=== PATIENT | male | born 2005 | race Caucasian/White ===

== ENCOUNTER 2024-05-14 21:24 | Outpatient (REF) | payer BC, SELFPAY | END 2024-05-14 21:25 | disposition home or self-care (01) | LOC: LBN 21:24 | PROVIDERS: Visit Provider Physician Assistant Medical | DX: J02.9 Acute pharyngitis, unspecified (principal) | CPT/HCPCS: 87070 ==

== ENCOUNTER 2024-10-16 17:04 | Emergency (ER) | payer BC, SELFPAY ==
[2024-10-16 17:16] VITALS: BP 114/67; PULSE 105; RESP 18; TEMP 37.9; O2SAT 98
--- NOTE | 2024-10-16 18:24 | ED.GENADUL_ITS ---
Discharge Plan Disposition Patient Disposition: Home Condition: Good Discharge Details Clinical Impression: Fever Primary Care Provider: None,None ED Provider: Aditi Jeffrey Home Meds and New Rx's Prescriptions: No Action No Known Home Meds Discharge Instructions Instructions: Fever, Adult ED Additional Instructions: Continue taking tylenol and ibuprofen at home. Call your primary care doctor in the morning to schedule an appointment for within 72 hours to followup on your visit here. At that visit please also mention your magnesium which was slightly low here in the ED. Return to the emergency department for new or worsening symptoms including if your vomiting returns, you are unable to keep down fluids, headache, neck pain, rash, trouble breathing, or if you fever does not come down after medication. Stand Alone Forms: Work Release Discharge Data Discharge Date/Time-TO BE ENTERED AT DEPARTURE: 10/16/24 23:32 HPI General Mode of arrival: ambulatory . Date/Time Provider Initiated Documentation: 10/16/24 17:21 . Limitations to Documentation: no limitations . Information obtained by: patient . HPI Narrative: 19yo previously healthy male reports UTD on immunizations presenting for fever since yesterday. Tmax 102 F at home, improves with home tylenol or nyguil. Was nauseated yesterday and vomited once (nonbloody nonbilious); no further vomiting since then and nausea is now very mild and intermittent. No diarrhea, constipation, bloody stool, or abdominal pain. Drinking well, maybe slight decreased food intake. No cough, cold, rhinnorhea, chest pain, shortness of breath, dysuria, hematuria, rash, headache, neck pain, or myalgias. Does feel generally fatigued. No sick contacts. Related Data Home Medications ?Medication ?Instructions ?Recorded ?Confirmed Unknown [No Known Home Meds] 10/16/24 0 10/16/24 Allergies Allergy/AdvReac Type Severity Reaction Status Date / Time No Known Allergies Allergy Unverified 10/16/24 17:21 General Stated Complaint: Fever ROBERTO: 3 Review of Systems Narrative: see HPI Exam Narrative Exam Narrative: General: Alert, well appearing, well nourished, in no acute distress. Head: Normocephalic, atraumatic Neck: Trachea midline, ?Neck supple, no nuchal rigidity ENT: ?MMM.? No oropharygeal lesions or exudate. Cardiac: ?RRR, no murmurs appreciated Resp: No respiratory distress. CTAB. Abd: ?Soft, non-distended, nontender : ?No suprapubic tenderness. No CVA tenderness. Extremities: ?No deformities.? No peripheral edema. Neurologic: GCS 15. ? PERRL. Fluent speech, no dysarthria. Moves all extremities freely against gravity Course Vital Signs Vital signs: Vital Signs Temperature 37.9 C H 10/16/24 17:16 Pulse 105 H 10/16/24 17:16 Respiratory Rate 18 10/16/24 17:16 Blood Pressure 114/67 10/16/24 17:16 Pulse Oximetry 98 10/16/24 17:16 Temperature 37.9 C H 10/16/24 17:16 Temperature Source Oral 10/16/24 17:16 Pulse 105 H 10/16/24 17:16 Respiratory Rate 18 10/16/24 17:16 Blood Pressure 114/67 10/16/24 17:16 Pulse Oximetry 98 10/16/24 17:16 Pain Level 0 10/16/24 17:16 Medical Decision Making 19yo previously healthy male reports UTD on immunizations presenting for fever since yesterday. Tmax 102 F at home, nausated yesterday with single episode of emesis. No vomiting today and nausea improved. No other clear infectious symptoms. Temp of 37.9 on arrival, vital signs otherwise reassuring (initial pulse 105 after ambulating into triage, HR 80's on my exam). Well appearing on exam. Not overtly septic, will not treat empirically or send blood cultures. No clear foci of infection on exam or history. Abdomen is soft and entirely nontender reassuring against appendicitis, obstruction, colitis, other surgical intraabodminal pathology; would not get CT imaging. Will give ibuprofen here for symptoms while awaiting results of workup. History and exam not suggestive of meningitis, encephalitis; no indication for LP. -Labs reviewed as below, CBC with borderline leukopenia at 4.09 with normal diff, CMP with no actionable abnormalities (very slightly elevated AST/ALT), Mg borderline low at 1.7 (oral replacement ordered). UA not infected. -CXR independently reviewed, no focal pneumonia on my view, radiology read with no acute findings. -POC covid and flu negative -Tick and Lyme panel sent out On reassessment he reports feeling better after ibuprofen and would like discharge home. Remains well appearing. Repeat VS reassuring with normal HR and temperature. Unclear etiology of fever (early viral illness? tickbourne?) however with reassuring workup appropriate to go home. Strict return precautions were reviewed. Discharged home; discharge instructions and return precautions were reviewed with patient who verbalized understanding. All questions were answered and he is in full agremeent with the plan. Lab Data Lab results reviewed: Yes I reviewed the patient's lab results. Labs: Laboratory Tests Range/Units 10/16/24 10/16/24 18:14 20:30 WBC (4.4-10.8) 10^3/uL 4.09 L RBC (4.36-5.78) 10^6/uL 5.28 Hgb (13.5-17.5) g/dL 14.6 Hct (40.0-50.0) % 43.4 MCV (80-95) fL 82 MCH (27.0-33.0) pg 27.7 MCHC (32.0-36.0) % 33.6 RDW (11.8-14.1) % 13.2 Plt Count (130-400) 10^3/uL 134 MPV (8.0-11.0) fL 9.4 Immature Gran % % 0.0 Neutrophils % % 38.0 Lymphocytes % % 52.0 Atypical Lymphs % % 3 Monocytes % % 6.0 Eosinophils % % 0.0 Basophils % % 1.0 Nucleated RBC % (0.0-0.3) % 0.0 Absolute Neutrophils (1.2-6.7) 10^3/uL 1.55 Absolute Lymphocytes (1.2-3.4) 10^3/uL 2.25 Absolute Monocytes (0.1-0.8) 10^3/uL 0.25 Absolute Eosinophils (0.0-0.7) 10^3/uL 0.00 Absolute Basophils (0.0-0.2) 10^3/uL 0.04 RBC Morphology Normal Sodium (136-145) mmol/L 136 Potassium (3.5-5.1) mmol/L 4.0 Chloride (98-107) mmol/L 102 Carbon Dioxide (21.0-32.0) mmol/L 29.0 Anion Gap (3-11) mmol/L 5.0 BUN (7-18) mg/dL 14 Creatinine (0.70-1.30) mg/dL 1.2 Est GFR (CKD-EPI 2020) (mL/min/1.73m2) 88.24 Glucose (74-106) mg/dL 98 Calcium (8.5-10.1) mg/dL 9.2 Magnesium (1.8-2.4) mg/dL 1.7 L Total Bilirubin (0.2-1.0) mg/dL 0.7 AST (15-37) U/L 79 H ALT (16-63) U/L 80 H Alkaline Phosphatase (46-116) U/L 87 Total Protein (6.4-8.2) g/dL 7.2 Albumin (3.4-5.0) g/dL 4.0 Urine Color (Yellow) Dark Yellow Urine Clarity (Clear) Clear Urine pH (5-8) 6.0 Ur Specific [place] (1.005-1.025) 1.025 Urine Protein (Neg-Trace) mg/dL 100 H Urine Ketones (Negative) mg/dL Trace H Urine Blood (Negative) Negative Urine Nitrite (Negative) Negative Urine Bilirubin (Negative) Small H Urine Urobilinogen (Up to 0.2) mg/dL 0.2 Ur Leukocyte Esterase (Negative) Negative Urine RBC (0-2) HPF 0-2 Urine WBC (0-5) HPF 0-2 Ur Epithelial Cells (Negative) HPF Negative Urine Crystals (Negative) HPF Negative Urine Bacteria (Negative) HPF Rare Urine Casts (Negative) LPF Negative Urine Mucus (Negative) Moderate Ur Culture Indicated? No Urine Glucose (Negative) mg/dL Negative PFSH All Active Problems (Updated 10/16/24 @ 22:56 by Aditi Jeffrey MD) Fever (Acute) Social History Smoking/Tobacco Use Status: Current every day Smoking risk assessment performed?: Yes Alcohol Intake: current Alcohol Intake frequency: a few times a week Drug use: Socially Substance use type: marijuana Housing: apartment Do you feel safe at home: Yes Do you feel safe in your relationship?: Yes
[2024-10-16 18:25] LABS: Abs Immature Grans 0.02 10^3/uL (0.0-0.06); HCT 43.4 % (40.0-50.0); HGB 14.6 g/dL (13.5-17.5); MCH 27.7 pg (27.0-33.0); MCHC 33.6 % (32.0-36.0); MCV 82 fL (80-95); MPV 9.4 fL (8.0-11.0); Platelet Count 134 10^3/uL (130-400); RBC 5.28 10^6/uL (4.36-5.78); RDW 13.2 % (11.8-14.1); RDW-SD 39.6 fL; WBC 4.09 10^3/uL (4.4-10.8)
[2024-10-16 18:40] LABS: ALT 80 U/L (16-63); AST 79 U/L (15-37); Albumin 4.0 g/dL (3.4-5.0); Alkaline Phosphatase 87 U/L (46-116); Anion Gap 5.0 mmol/L (3-11); BUN 14 mg/dL (7-18); Bilirubin, Total 0.7 mg/dL (0.2-1.0); CO2 29.0 mmol/L (21.0-32.0); Calcium 9.2 mg/dL (8.5-10.1); Chloride 102 mmol/L (98-107); Estimated GFR 88.24 (mL/min/1.73m2); Glucose 98 mg/dL (74-106); Magnesium 1.7 mg/dL (1.8-2.4); Potassium 4.0 mmol/L (3.5-5.1); Sodium 136 mmol/L (136-145); Total Protein 7.2 g/dL (6.4-8.2)
[2024-10-16 18:48] LABS: Immature Grans % 0.0 %; RBC Morphology Normal
[2024-10-16] MEDS: Ibuprofen 800 MG TAB PO (18:50)
[2024-10-16 20:20] VITALS: BP 96/55; TEMP 36.7; O2SAT 68
--- NOTE | 2024-10-16 20:35 | DI.RAD_ITS ---
Exam(s) XR CHEST 2V PA LATERAL EXAM: XR CHEST 2V PA LATERAL CLINICAL HISTORY: fever TECHNIQUE: 2D digital imaging was performed. Two views. COMPARISON: No exams were available for comparison FINDINGS: HEART: Normal size. Aorta: Not dilated. PULMONARY VASCULATURE: Normal. MEDIASTINUM: Unremarkable. LUNGS: Clear. PLEURAL SPACE: No pleural effusion or pneumothorax. BONE:Unremarkable for age. SOFT TISSUES: Unremarkable. IMPRESSION: No acute abnormality. The preliminary [facility] report was reviewed. DATA REPOSITORY: RADIATION DOSE DELIVERED:
[2024-10-16 20:38] LABS: Glucose Negative (Negative)
[2024-10-16 20:46] LABS: C & S Indicated? No; RBC 0-2 HPF (0-2); WBC 0-2 HPF (0-5)
[2024-10-16] MEDS: Magnesium Gluconate 500 MG TAB 1000 MG PO (20:59)
--- NOTE | 2024-10-16 21:36 | DI.[facility]_ITS ---
PROCEDURE INFORMATION: Exam: XR Chest Exam date and time: 10/16/2024 8:38 PM Age: 19 years old Clinical indication: Fever TECHNIQUE: Imaging protocol: Radiologic exam of the chest. Views: 2 views. COMPARISON: No relevant prior studies available. FINDINGS: Lungs: Unremarkable. No consolidation. Pleural spaces: Unremarkable. No pleural effusion. No pneumothorax. Heart/Mediastinum: Unremarkable. No cardiomegaly. Bones/joints: Unremarkable. IMPRESSION: No acute findings. Dictated and Authenticated by: Husam Kumar MD. Orderin Wojciech Pennington MD
[2024-10-16 21:56] VITALS: BP 99/56; PULSE 63; RESP 24; O2SAT 99
[2024-10-16 23:04] VITALS: BP 111/66; BP 99/56; PULSE 63; PULSE 74; RESP 15; RESP 24; TEMP 36.7; O2SAT 99
[2024-10-20 01:11] LABS: B. miyamotoi PCR Negative (Negative); Babesia divergens/MO-1 Negative (Negative); Ehrlichia muris eauclairensis Negative (Negative)
[2024-10-20 10:37] LABS: Lyme Ab w Rflx to Lyme Confirm Negative (Negative)
== END 2024-10-16 23:32 | disposition home or self-care (01) ==
PROVIDERS: Emergency Provider Student in an Organized Health Care Education/Training Program
DX: J03.90 Acute tonsillitis, unspecified (principal); R50.9 Fever, unspecified; R11.2 Nausea with vomiting, unspecified
CPT/HCPCS: 99284 ×2; 36415; 80053; 87798; 71046; 81003; 81015; 83735; 85025; 86618

== ENCOUNTER 2024-10-20 06:16 | Emergency (ER) | payer BC, SELFPAY ==
[2024-10-20 06:19] VITALS: BP 108/67; PULSE 102; RESP 18; TEMP 36.5; O2SAT 100
[2024-10-20 06:24] VITALS: BP 108/67; PULSE 102; RESP 18; TEMP 36.5; O2SAT 100
--- NOTE | 2024-10-20 06:32 | ED.GENADUL_ITS ---
Discharge Plan Disposition Patient Disposition: Home Condition: Good Discharge Details Clinical Impression: Acute tonsillitis Primary Care Provider: None,None ED Provider: Jamie Burgess Home Meds and New Rx's Prescriptions: New amoxicillin-pot clavulanate 875-125 mg tablet 1 tab PO BID 10 Days Qty: 20 0RF Discharge Instructions Instructions: Strep Throat ED Additional Instructions: At this time you have notable inflammation of your tonsils, as well as infection. Thankfully they are not large enough to necessitate emergent surgical intervention. We have given you a steroid to help with the swelling, as well as an antibiotic to help with the infection. Please take this as prescribed. Please follow-up closely with the ENT for reassessment to discuss potential surgical options if indicated. Please take 800 mg of ibuprofen every 6 hours to help with the inflammation and pain. You can also take 1000 mg of Tylenol every 6 hours. These are the maximum doses. If you notice any worsening of your symptoms, or any new symptoms such as vomiting, diarrhea, fever, chills, shortness of breath, chest pain, numbness, weakness, or fainting , please return immediately to the emergency department for reevaluation. Please follow up with your primary care provider as soon as possible for reassessment and reevaluation. As always, it was a pleasure participating in your medical care today. Stand Alone Forms: Work Release Referrals: Wily Olvera MD [ [facility] STAFF PHYSICIAN, ENT Surgical] Discharge Data Discharge Date/Time-TO BE ENTERED AT DEPARTURE: 10/20/24 06:51 HPI General Date/Time Provider Initiated Documentation: 10/20/24 06:30 . HPI Narrative: This is a pleasant 19-year-old male with no significant past medical history who presents today for evaluation of sore throat. Patient states that for the past week he has had intermittent fever that comes and goes and responds well to ibuprofen. He was seen and assessed few days ago here in the ED without any clear diagnosis at that time. However over the last 48 hours he has developed a mild to moderate sore throat, with fatigue and still intermittent fevers. He denies headache or neck pain, cough or shortness of breath, he does admit to mil d nausea. He denies any diarrhea. He does have close family that he lives with and relationships, none of which are ill or sick. He does work at a school. He denies any severe debilitating fatigue similar to mono. No other complaints at this time. Related Data Home Medications ?Medication ?Instructions ?Recorded ?Confirmed amoxicillin 875 mg-potassium 1 tab PO BID 10 days #20 tabs 10/20/24 clavulanate 125 mg tablet Previous Rx's ?Medication ?Instructions ?Recorded amoxicillin 875 mg-potassium 1 tab PO BID 10 days #20 tabs 10/20/24 clavulanate 125 mg tablet Allergies Allergy/AdvReac Type Severity Reaction Status Date / Time No Known Allergies Allergy Unverified 10/16/24 17:21 General Stated Complaint: RespSymp ROBERTO: 3 Exam Narrative Exam Narrative: 1.Const: Well-nourished, Well-developed, appearing stated age 2.Eyes: PERRL, no conjunctival injection, and symmetrical lids. 3.ENT: Atraumatic external nose and ears. Moist MM. Neck: Symmetric, trachea midline, No thyromegaly. No evidence of otitis media. Patient demonstrates grade 3 size tonsils, with exudate, as well as mild atypical necrosis at the base. He is still able to swallow well demonstrates no evidence of dysphagia or dysarthria. No evidence of airway compromise. No stridor. No bleeding. Uvula is midline. No palpable peritonsillar abscess. 4.CVS: +S1/S2, Peripheral pulses 2+ and equal in all extremities. Brisk capillary refill in all extremities. 5.RESP: Unlabored respiratory effort. Clear to auscultation bilaterally. No wheezes rales or rhonchi 6.GI: Soft, Nontender/Nondistended, No hepatosplenomegaly. No guarding or rebound. 7.MSK: Normocephalic/Atraumatic, Extremities w/o deformity or ttp No cyanosis or clubbing, Normal movement of all extremities 8.Skin: Warm, Dry. No rashes or lesions. 9.Neuro: lining sewer II-XII grossly intact. Sensation grossly intact, no focal neurologic deficits. 10.Psych: (AAO) x3. Appropriate mood and affect Course Vital Signs Vital signs: Vital Signs Temperature 36.5 C 10/20/24 06:19 Pulse 102 H 10/20/24 06:19 Respiratory Rate 18 10/20/24 06:19 Blood Pressure 108/67 10/20/24 06:19 Pulse Oximetry 100 10/20/24 06:19 Temperature 36.5 C 10/20/24 06:24 Pulse 102 H 10/20/24 06:24 Respiratory Rate 18 10/20/24 06:24 Respiratory Effort Normal, Non-Labored 10/20/24 06:26 Respiratory Depth Normal 10/20/24 06:26 Blood Pressure 108/67 10/20/24 06:24 Blood Pressure Position Sitting 10/20/24 06:24 Pulse Oximetry 100 10/20/24 06:24 Oxygen Delivery Method Room Air 10/20/24 06:24 Oxygen Flow Rate 0 10/20/24 06:24 Pain Level 7 10/20/24 06:24 Medical Decision Making This is a pleasant 19-year-old male with no significant past medical history who presents today for evaluation of sore throat. Patient states that for the past week he has had intermittent fever that comes and goes and responds well to ibuprofen. He was seen and assessed few days ago here in the ED without any clear diagnosis at that time. However over the last 48 hours he has developed a mild to moderate sore throat, with fatigue and still intermittent fevers. He denies headache or neck pain, cough or shortness of breath, he does admit to mild nausea. He denies any diarrhea. He does have close family that he lives with and relationships, none of which are ill or sick. He does work at a school. He denies any severe debilitating fatigue similar to mono. No other complaints at this time. Patient demonstrates grade 3 size tonsils, with exudate, as well as mild atypical necrosis at the base. He is still able to swallow well demonstrates no evidence of dysphagia or dysarthria. No evidence of airway compromise. No stridor. No bleeding. Uvula is midline. No palpable peritonsillar abscess. Symptoms appear consistent with mild tonsillitis. Patient states that he has never had any STDs, he is in a monogamous relationship, and denies any personal history of STDs for himself or his female partner. Additionally he states that he had notable swelling of the tonsils yesterday however it is notably improved compared to before. At this time there does not appear to be a surgical indication for an emergent tonsillectomy as he shows no signs of airway compromise. However because of the pain and swelling we will give a dose of Decadron 12 mg, will treat with Augmentin, and recommend close follow-up with ENT this week. Recommend continued NSAID therapy at home. Strep test was negative, however we will send for culture. He has no severe fatigue that would suggest mono. No history of STDs to suggest necrotizing herpetic tonsillitis. I had a long discussion with him regarding signs and symptoms that would indicate peritonsillar abscess as well as worsening tonsillitis necessitating surgical intervention. Discussed red flags for which to return. I have extensively reviewed the treatment plan and discharge instructions with the patient. I have addressed all patient concerns at this time. The patient was made aware of what symptoms to monitor for that would warrant a return to the emergency department. Discussed the plan with the patient, they demonstrate verbal understanding and agreement with our assessment and plan at this time. The documentation in this chart was dictated using [employer] dictation software. Please excuse any dictation errors. PFSH All Active Problems (Updated 10/20/24 @ 06:32 by Jamie Burgess DO) Acute tonsillitis (Acute) Fever (Acute) Social History Smoking/Tobacco Use Status: Current every day Smoking risk assessment performed?: Yes Alcohol Intake: current Alcohol Intake frequency: a few times a week Drug use: Socially Substance use type: marijuana Housing: apartment Do you feel safe at home: Yes Do you feel safe in your relationship?: Yes
[2024-10-20] MEDS: Dexamethasone 4 MG TAB 12 MG PO (06:40)
[2024-10-20] MEDS: Ondansetron O.D.T. 4 MG TABEF, 3 TABS/BTL PO (06:40)
[2024-10-20] MEDS: Amox. 875/Clav. 125, 2 TABS/BTL 1 TAB PO (06:40)
--- NOTE | 2024-10-22 08:47 | NUR.NOTE ---
Accessed Pt chart to check to see if the patient was prescribed antibiotics. He was, this was documented on the Specimen report and given to the providers.
== END 2024-10-20 06:51 | disposition home or self-care (01) ==
LOC: ER 06:35
PROVIDERS: Emergency Provider Student in an Organized Health Care Education/Training Program
DX: J03.90 Acute tonsillitis, unspecified (principal)
CPT/HCPCS: 99283 ×2; 87880; 87081; J8540

== ENCOUNTER 2024-10-22 13:41 | Emergency (ER) | payer BC, SELFPAY ==
[2024-10-22 14:07] VITALS: BP 129/78; PULSE 90; RESP 12; TEMP 36.6; O2SAT 98
--- NOTE | 2024-10-22 16:34 | W.ED.GENAD ---
Discharge Plan Disposition Patient Disposition: Home Condition: Stable Discharge Details Clinical Impression: Strep pharyngitis Primary Care Provider: None,None ED Provider: Guerda Gordillo Home Meds and New Rx's Prescriptions: New prednisone 50 mg tablet 50 mg PO DAILY 5 Days Qty: 5 0RF Rx Instructions: Take 1 tablet daily for the next 5 days lidocaine HCl [Lidocaine Viscous] 2 % solution 5 ml mucous membrane BID MDD 10ml PRN (Reason: pain) 5 Days Qty: 50 0RF Rx Instructions: 5ml by mouth swish, gargle, and swallow no more than twice daily alum-mag hydroxide-simeth 400-400-40 mg/5 mL suspension 5 ml PO BID PRN (Reason: Strep throat) 5 Days Qty: 100 0RF Rx Instructions: Mix 5 mL with 5 mL of lidocaine by mouth gargle, swish and swallow no more than twice daily x 5 days Continued amoxicillin-pot clavulanate 875-125 mg tablet 1 tab PO BID 10 Days Qty: 20 0RF Discharge Instructions Instructions: Strep Throat ED Additional Instructions: Continue to gargle with warm salt water up to 3 times daily as needed. He may also gargle with a lidocaine solution and Maalox simethicone mixed together twice a day. Take the prednisone once daily for the next 5 days as directed. Continue to take the antibiotic as previously prescribed. You may sleep with a couple mist humidifier at the bedside. Please take Tylenol or Ibuprofen with food every 4-6 hours as needed for pain and swelling. Follow up with primary care provider in 3-5 days. Return to ED sooner if any worsening or concerns. You have declined the mono testing today which is okay, this would not change the treatment. Thank you for allowing us to care for you today. Stand Alone Forms: Work Release Referrals: [facility] [Provider Group] - 5 days Referral Note: ER follow-up, call for appointment. Clinical Impression: Strep pharyngitis HPI General Mode of arrival: ambulatory. Date/Time Provider Initiated Documentation: 10/22/24 13:50. Limitations to Documentation: no limitations. Information obtained by: patient, RN notes reviewed and old records reviewed. HPI Narrative: 19-year-old male presents to the ER with chief complaint of recheck after being diagnosed with strep throat positive approximately 48 hours ago. Patient was placed on Augmentin twice daily which he reports he is taking as prescribed. He states that he is gargling with warm salt water, taking Tylenol and ibuprofen with little to no relief. He is complaining of pain. He is speaking in full sentences no stridor noted lungs are clear to auscultation bilaterally. He reports with sleep he does drool . He states that he did have some throat swelling and it was opening up with a steamy shower. He does endorse smoking marijuana denies any drugs or alcohol. Related Data Home Medications ?Medication ?Instructions ?Recorded ?Confirmed amoxicillin 875 mg-potassium 1 tab PO BID 10 days #20 tabs 10/20/24 10/22/24 clavulanate 125 mg tablet aluminum-mag hydroxide-simethicone 5 ml PO BID PRN Strep throat 5 10/22/24 400 mg-400 mg-40 mg/5 mL oral susp days #100 mL lidocaine HCl 2 % mucosal solution 5 ml mucous membrane BID PRN pain 10/22/24 (Lidocaine Viscous) 5 days #50 mL prednisone 50 mg tablet 50 mg PO DAILY Inflammation 5 days 10/22/24 #5 tabs Previous Rx's ?Medication ?Instructions ?Recorded amoxicillin 875 mg-potassium 1 tab PO BID 10 days #20 tabs 10/20/24 clavulanate 125 mg tablet aluminum-mag hydroxide-simethicone 5 ml PO BID PRN Strep throat 5 10/22/24 400 mg-400 mg-40 mg/5 mL oral susp days #100 mL lidocaine HCl 2 % mucosal solution 5 ml mucous membrane BID PRN pain 10/22/24 (Lidocaine Viscous) 5 days #50 mL prednisone 50 mg tablet 50 mg PO DAILY Inflammation 5 days 10/22/24 #5 tabs Allergies Allergy/AdvReac Type Severity Reaction Status Date / Time No Known Allergies Allergy Verified 10/22/24 14:10 General Stated Complaint: Sorethroat ROBERTO: 4 Review of Systems All systems reviewed & are unremarkable except as noted in HPI and below Constitutional Constitutional: Reports as per HPI, Reports fatigue and Reports lethargy ENT Ears, Nose, Mouth, and Throat: Reports as per HPI, Reports neck pain, Reports odynophagia, Reports sore throat, Reports throat swelling and Denies tongue swelling Respiratory Respiratory: Reports system reviewed and no additional complaints, except as documented Gastrointestinal Gastrointestinal: Reports odynophagia Musculoskeletal Musculoskeletal: Reports neck pain Endocrine Endocrine: Reports fatigue Allergic/Immunologic Allergic/Immunologic: Reports throat swelling and Denies tongue swelling Exam Narrative Exam Narrative: Constitutional: Alert and oriented x3. Appears stated age. Normal body habitus. Head: Normocephalic, no trauma. Eyes: Pupils PERRL, Red reflex noted, EOM's intact. Eyelids symmetrical without lesions, discharge, or swelling. ENT: Bilateral TM's WNL, External ear normal to inspection, no mastoid TTP, swelling, or erythema, Nasal turbinates WNL, no nasal discharge. Normal dentition, Posterior pharynx erythemic, exudate noted bilaterally, tonsils 2+ bilaterally, uvula midline. Anterior cervical lymphadenopathy. Chest: RRR, Normal S1, S2, distal pulses intact. Resp: Lungs clear to auscultation bilaterally, no wheezes, rales, or rhonchi. Abdomen: Soft, non-distended, Normoactive bowel sounds all 4 quads. Musculoskeletal: Normal gait, Moves all 4 extremities without difficulty. Skin: No suspicious rashes or lesions. Capillary refill less than 2 sec. Neurologic: Cranial nerves II-XII intact. Alert and oriented x 3. Motor: No deficits noted. HENMT Throat: uvula midline, posterior oropharynx abnormal erythema and exudates (Bilaterally) and uvula not displaced Course Vital Signs Vital signs: Vital Signs Temperature 36.6 C 10/22/24 14:07 Pulse 90 10/22/24 14:07 Respiratory Rate 12 10/22/24 14:07 Blood Pressure 129/78 10/22/24 14:07 Pulse Oximetry 98 10/22/24 14:07 Temperature 36.6 C 10/22/24 14:07 Temperature Source Oral 10/22/24 14:07 Pulse 90 10/22/24 14:07 Respiratory Rate 12 10/22/24 14:07 Blood Pressure 129/78 10/22/24 14:07 Blood Pressure Position Sitting 10/22/24 14:07 Pulse Oximetry 98 10/22/24 14:07 Oxygen Delivery Method Room Air 10/22/24 14:07 Oxygen Flow Rate 0 10/22/24 14:07 Medical Decision Making 19-year-old male presents to the ER with chief complaint of recheck after being diagnosed with strep throat positive approximately 48 hours ago. Patient was placed on Augmentin twice daily which he reports he is taking as prescribed. He states that he is gargling with warm salt water, taking Tylenol and ibuprofen with little to no relief. He is complaining of pain. He is speaking in full sentences no stridor noted lungs are clear to auscultation bilaterally. He reports with sleep he does drool . He states that he did have some throat swelling and it was opening up with a steamy shower. He does endorse smoking marijuana denies any drugs or alcohol. Patient does also endorse that he has been trying to get a exudates off with a cotton tip swab, I did encourage him not to do this. Continue to reinforce encouraged him to continue gargling with warm salt water up to 3 times daily as needed, I did also instruct him to use [id number] throat lozenges and/or Cepacol spray or similar. Will give him Mylanta and lidocaine to gargle and swallow, prednisone 60 mg here, and test for mono. 1639: Informed by public health staff nurse that patient is declining the mono blood draw. Lab canceled. Will plan to discharge home with prednisone. This text was generated using [employer] dictation system, please disregard any oddities of phrase or misspellings. PFSH All Active Problems (Updated 10/22/24 @ 16:40 by Guerda Gordillo NP) Strep pharyngitis (Acute) Acute tonsillitis (Acute) Fever (Acute) Social History Smoking/Tobacco Use Status: Current every day Smoking risk assessment performed?: Yes Alcohol Intake: current Alcohol Intake frequency: a few times a week Drug use: Socially Substance use type: marijuana Housing: apartment Do you feel safe at home: Yes Do you feel safe in your relationship?: Yes
[2024-10-22] MEDS: predniSONE 20 MG TAB 40 MG PO (16:41)
[2024-10-22] MEDS: MYLANTA 30 ML, LIDOCAINE 2% VISCOUS UD 15 ML PO (16:41)
== END 2024-10-22 17:01 | disposition home or self-care (01) ==
PROVIDERS: Emergency Provider Registered Nurse Emergency
DX: J02.0 Streptococcal pharyngitis (principal)
CPT/HCPCS: 99283; 86308; J7512

== ENCOUNTER 2024-10-30 09:22 | Emergency (ER) | payer BC, SELFPAY ==
[2024-10-30 09:29] VITALS: BP 139/75; PULSE 87; RESP 18; TEMP 36.7; O2SAT 98
--- NOTE | 2024-10-30 09:56 | W.ED.GENAD ---
Discharge Plan Disposition Patient Disposition: Home Discharge Details Clinical Impression: Rash Primary Care Provider: None,None ED Provider: Jamie Burgess Home Meds and New Rx's Prescriptions: No Action amoxicillin-pot clavulanate 875-125 mg tablet 1 tab PO BID Patient Comments: TAKE ONE TABLET BY MOUTH TWICE A DAY FOR 10 DAYS Discharge Instructions Instructions: Skin Rash ED Additional Instructions: At this time your rash appears mild however there are multiple potential causative agents for the rash. After strep infection you can develop a scarlatiniform rash, which this does not completely appear to be. The treatment for this would be treatment of your strep infection, which we have successfully done at this stage. Alternatively viral infections can cause a viral exanthems that also look quite similar to this. The treatment for that is supportive therapy. Alternatively you could have a mild reaction to the antibiotic that you were given which can cause a rash as well. The treatment for this is Benadryl, loratadine, and sometimes a short course of steroids. Please take 25 mg of Benadryl every 6 hours, and 10 mg of loratadine every day. Monitor your rash closely. If you notice any worsening of your symptoms, or any new symptoms such as spreading of the rash, scaling or peeling of your skin, swelling of your tongue, vomiting, diarrhea, fever, chills, shortness of breath, chest pain, numbness, weakness, or fainting , please return immediately to the emergency department for reevaluation. Please follow up with your primary care provider as soon as possible for reassessment and reevaluation. As always, it was a pleasure participating in your medical care today. Discharge Data Discharge Date/Time-TO BE ENTERED AT DEPARTURE: 10/30/24 10:08 HPI General Date/Time Provider Initiated Documentation: 10/30/24 09:56. HPI Narrative: 19-year-old male with no significant past medical history who was recently diagnosed with strep pharyngitis and tonsillitis, who started a prescription for Augmentin on 10/20/2024 (for 10-day course), and then 2 days later came in and received a course of prednisone for 5 days culminating on 10/27 (although he did not take the full course, and missed 1 or 2 of the final doses) who presents today for evaluation of rash. Patient states that he noted yesterday a rash developing on his upper arms bilaterally starting near the axillary regions and spreading to his hands, mild rash from his chest and back, and then rash on his medial thighs as well. He denies any fever or chills. He states that the sore throat and neck pain has completely resolved and has been resolved for many days now. He has clinically been feeling well. He describes the rash as itchy. He states that he has taken Benadryl this morning at work for it. It has improved the symptoms of itchy. He denies any headache, neck pain, chest pain or shortness of breath. No other complaints at this time. He denies any history of rash in the past. No history of allergies otherwise. Related Data Home Medications ?Medication ?Instructions ?Recorded ?Confirmed amoxicillin 875 mg-potassium 1 tab PO BID 10/30/24 10/30/24 clavulanate 125 mg tablet Allergies Allergy/AdvReac Type Severity Reaction Status Date / Time No Known Allergies Allergy Verified 10/30/24 09:31 General Stated Complaint: RashLesion ROBERTO: 4 Exam Narrative Exam Narrative: 1.Const: Well-nourished, Well-developed, appearing stated age 2.Eyes: PERRL, no conjunctival injection, and symmetrical lids. 3.ENT: Atraumatic external nose and ears. Moist MM. Neck: Symmetric, trachea midline, No thyromegaly. 4.CVS: +S1/S2, Peripheral pulses 2+ and equal in all extremities. Brisk capillary refill in all extremities. 5.RESP: Unlabored respiratory effort. Clear to auscultation bilaterally. No wheezes rales or rhonchi 6.GI: Soft, Nontender/Nondistended, No hepatosplenomegaly. No guarding or rebound. 7.MSK: Normocephalic/Atraumatic, Extremities w/o deformity or ttp No cyanosis or clubbing, Normal movement of all extremities 8.Skin: Patient demonstrates a diffuse macular rash. It is not raised or sandpapery in nature. It is erythematous in color, with a deep red nature. No scaliness. It is primarily concentrated with some coalescence over the medial arms with the diffuse light spread over the arms, palms, chest and back and on the medial aspect of the knees. Negative Nikolsky sign. No large vesicles or bulla. No palpable purpura. No oral lesions. No mucosal lesions. No evidence of severe cellulitis. No evidence of vaccine preventable rash. 9.Neuro: fryer operator II-XII grossly intact. Sensation grossly intact, no focal neurologic deficits. 10.Psych: (AAO) x3. Appropriate mood and affect Course Vital Signs Vital signs: Vital Signs Temperature 36.7 C 10/30/24 09:29 Pulse 87 10/30/24 09:29 Respiratory Rate 18 10/30/24 09:29 Blood Pressure 139/75 10/30/24 09:29 Pulse Oximetry 98 10/30/24 09:29 Temperature 36.7 C 10/30/24 09:29 Pulse 87 10/30/24 09:29 Respiratory Rate 18 10/30/24 09:29 Blood Pressure 139/75 10/30/24 09:29 Pulse Oximetry 98 10/30/24 09:29 Medical Decision Making 19-year-old male with no significant past medical history who was recently diagnosed with strep pharyngitis and tonsillitis, who started a prescription for Augmentin on 10/20/2024 (for 10-day course), and then 2 days later came in and received a course of prednisone for 5 days culminating on 10/27 (although he did not take the full course, and missed 1 or 2 of the final doses) who presents today for evaluation of rash. Patient states that he noted yesterday a rash developing on his upper arms bilaterally starting near the axillary regions and spreading to his hands, mild rash from his chest and back, and then rash on his medial thighs as well. He denies any fever or chills. He states that the sore throat and neck pain has completely resolved and has been resolved for many days now. He has clinically been feeling well. He describes the rash as itchy. He states that he has taken Benadryl this morning at work for it. It has improved the symptoms of itchy. He denies any headache, neck pain, chest pain or shortness of breath. No other complaints at this time. He denies any history of rash in the past. No history of allergies otherwise. Patient demonstrates a diffuse macular rash. It is not raised or sandpapery in nature. It is erythematous in color, with a deep red nature. No scaliness. It is primarily concentrated with some coalescence over the medial arms with the diffuse light spread over the arms, palms, chest and back and on the medial aspect of the knees. Negative Nikolsky sign. No large vesicles or bulla. No palpable purpura. No oral lesions. No mucosal lesions. No evidence of severe cellulitis. No evidence of vaccine preventable rash. Symptoms do not appear to be a scarlatiniform rash indicative of strep, besides the patient has had complete resolution of his strep symptoms, however there is a small chance that this could be a residual component of the strep infection. Regardless he has received appropriate treatment for strep at this time, and continues to show no signs of systemic etiologies. Alternatively, the patient may be suffering from a reaction from the amoxicillin, thankfully he shows no evidence to suggest SJS, or other life-threatening reactivity component. 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 Regardless, at this time there is No current clinical evidence of staph scalded skin syndrome, erythema multiforme, erythema migrans, toxic epidermal necrolysis, You-Conor syndrome, Kawasaki-like rash, meningococcemia, pemphigus vulgaris, or necrotizing fasciitis. We will recommend treatment with a single dose of Decadron, recommend Benadryl and loratadine for rash and itch control. We will recommend that he stop/hold the remaining few tablets of antibiotics that he has left. If the rash worsens or spreads I recommended to the patient that he return for reassessment and further diagnostics and evaluation. Patient understands. Patient otherwise hemodynamically stable with no evidence of life-threatening rash at this time. I have extensively reviewed the treatment plan and discharge instructions with the patient. I have addressed all patient concerns at this time. The patient was made aware of what symptoms to monitor for that would warrant a return to the emergency department. Discussed the plan with the patient, they demonstrate verbal understanding and agreement with our assessment and plan at this time. The documentation in this chart was dictated using [employer] dictation software. Please excuse any dictation errors. PFSH All Active Problems (Updated 10/30/24 @ 10:02 by Jamie Burgess DO) Rash (Acute) Strep pharyngitis (Acute) Acute tonsillitis (Acute) Fever (Acute) Social History Smoking/Tobacco Use Status: Current every day Smoking risk assessment performed?: Yes Alcohol Intake: current Alcohol Intake frequency: a few times a week Drug use: Daily Substance use type: marijuana Housing: apartment Do you feel safe at home: Yes Do you feel safe in your relationship?: Yes PAWSS Have you Been Recently Intoxicated or Drunk Within the Last 30 days?: No Have you Ever Experienced Previous Episodes of Alcohol Withdrawal?: No Have you ever Experienced Withdrawal Seizures?: No Have you ever Experienced Delirium Tremens(DT)s?: No Have you ever undergone Alcohol Rehabilitation Treatment (i.e, inpt ot outpatient treatment programs)?: No Have you ever Experienced Blackouts?: No Have you ever Combined Alcohol with other Downers within the last 90 days?: No Have you ever Combined Alcohol with any other Substance of Abuse during the last 90 days?: No Positive Blood Alcohol level on Presentation? [PCS.BAL]: No Evidence of Increased Autonomic Activity (i.e. HR>120, tremor, sweating, agitation, nausea)?: No Result: 0
[2024-10-30] MEDS: Dexamethasone 4 MG TAB 12 MG PO (10:04)
[2024-10-30] MEDS: Loratidine 10 MG TAB PO (10:04)
== END 2024-10-30 10:08 | disposition home or self-care (01) ==
PROVIDERS: Emergency Provider Student in an Organized Health Care Education/Training Program
DX: R21 Rash and other nonspecific skin eruption (principal)
CPT/HCPCS: 99283 ×2; J8540